=== PATIENT | female | born 1985 | race Caucasian/White ===

== ENCOUNTER 2018-10-20 08:34 | Observation (INO) | payer OTHER ==
[~2018-10-20] VITALS: Ht 172.7 cm; Wt 72.3 kg
[2018-10-20] VITALS (26 sets, daily range): BP systolic 116–146; BP diastolic 55–78; PULSE 78–116; RESP 12–32; Ht 172.7 cm; Wt 72.3 kg
[~2018-10-20 08:34] MED LIST: METOCLOPRAMIDE 10 MG INJ ONE
[2018-10-20] MEDS ORDERED: LIDOCAINE 2% (SDV) 5 ML INJ ONE ×2 (09:37→10:44)
[2018-10-20] MEDS ORDERED: MIDAZOLAM 1 MG/ML 2 ML INJ ONE ×2 (09:37→11:56)
[2018-10-20] MEDS ORDERED: PROPOFOL 20 ML ONE ×2 (09:37→15:28)
[2018-10-20] MEDS ORDERED: FENTAnyl 50 MCG/ML VIAL ONE ×2 (09:37→12:10)
[2018-10-20] MEDS ORDERED: CEFAZOLIN 1 GM INJ ONE (09:39)
--- NOTE | 2018-10-20 10:09 | PREAC ---
Date/Time of Note Date/Time of Note DATE: 10/20/18 TIME: 10:08 Anesthesia Eval and Record Evaluation Time Pre-Procedure Interview DATE: 10/20/18 TIME: 10:08 Age 33 Sex female NPO: 8 hrs Preoperative diagnosis L ankle non-union Planned procedure arthroscopic repair of L ankle non-union Past Medical History Past Medical History: None Surgery & Anesthesia Issues No known issue Meds Anticoagulation: No Beta Slava within 24 hr: No Reason Beta Slava not given: Pt. not on B-Slava No Active Prescriptions or Reported Meds Meds reviewed: Yes Allergies Coded Allergies: No Known Allergy (Unverified , 10/20/18) Allergies Reviewed: Yes Labs/Studies Labs Reviewed: Reviewed by anesthesiologist test: Negative Pre-procedure Exam Airway: Adequate mouth opening, Adequate thyromental dist Mallampati: Mallampati III Teeth: Normal Lung: Normal Heart: Normal ASA Physical Status ASA physical status: 2 Emergency: None Planned Anesthetic General/MAC: ETT Planned Pain Management Single shot nerve block, Parenteral pain med, Local by surgeon Pre-operative Attestations Prior to commencing anesthesia and surgery, the patient was re-evaluated, there was verification of: *The patient's identity *The results of appropriate recent lab work and preoperative vital signs *The above evaluation not changing prior to induction *Anesthetic plan, risk benefits, alternative and complications discussed with patient/family; questions answered; patient/family understands, accepts and wishes to proceed. ROSEMARY TENORIO MD Oct 20, 2018 10:09
[2018-10-20] MEDS ORDERED: DIPHENHYDRAMINE 50 MG INJ IV PRN (10:30)
[2018-10-20] MEDS ORDERED: FENTAnyl 50 MCG/ML VIAL IV PRN ×2 (10:30)
[2018-10-20] MEDS ORDERED: LEVALBUTEROL (NEB) 1.25 MG/0.5 ML AMP HHN PRN (10:30)
[2018-10-20] MEDS ORDERED: LABETALOL HCL 20MG INJ IV PRN (10:30)
[2018-10-20] MEDS ORDERED: ONDANSETRON 4 MG INJ IV PRN ×2 (10:30→16:00)
[2018-10-20] MEDS ORDERED: MEPERIDINE 25 MG INJ IV PRN (10:30)
[2018-10-20] MEDS ORDERED: hydrALAzine 20 MG INJ IV PRN (10:30)
[2018-10-20] MEDS ORDERED: LACTATED RINGER'S 1,000 ML IV SCH (10:30)
[2018-10-20] MEDS ORDERED: HYDROmorphONE 1 MG/5 ML IV SYRINGE IV PRN ×3 (10:30)
[2018-10-20] MEDS ORDERED: MIDAZOLAM 1 MG/ML 2 ML INJ IV PRN (10:30)
[2018-10-20] MEDS ORDERED: ROPIVACAINE 0.5 % 30 ML VIAL ONE ×2 (10:44→14:58)
[2018-10-20] MEDS ORDERED: SUCCINYLCHOLINE CHLORIDE 100 MG/5 ML SYG IV ONE (10:45)
[2018-10-20] MEDS ORDERED: ROCURONIUM 50 MG INJ ONE (10:45)
[2018-10-20] MEDS ORDERED: LIDOCAINE 1%/EPI (1:100,000) (MDV) 20 ML ONE (10:57)
[2018-10-20] MEDS ORDERED: ONDANSETRON 4 MG INJ ONE (11:22)
[2018-10-20] MEDS ORDERED: METOPROLOL 5 MG INJ ONE (12:08)
[2018-10-20] MEDS ORDERED: GLYCOPYRROLATE 0.4 MG INJ ONE (14:48)
[2018-10-20] MEDS ORDERED: NEOSTIGMINE 3 MG/3 ML SYRINGE ONE (14:48)
[2018-10-20] MEDS ORDERED: HYDROmorphONE 2 MG/ML SYG ONE (15:11)
[2018-10-20] MEDS: SOD CHLORIDE 0.9% 1,000 ML IV SCH ×2 (15:42→20:43)
--- NOTE | 2018-10-20 15:42 | OPPN ---
Date/Time of Note Date/Time of Note DATE: 10/20/18 TIME: 15:40 Operative Report Preoperative Diagnosis Nonunion left calcaneus anterior process fracture Postoperative Diagnosis same Operation/Procedure Performed Left ankle subtalar arthroscopy with extensive debridement. Open excision of left calcaneus nonunion fracture fragment Surgeon see signature line pharmacy affairs assistant Hang Dumont MD Anesthesia: general Estimated blood loss: minimal Transfusion Required none Specimen none Grafts/Implants none Complications none BETY WONG MD Oct 20, 2018 15:42
[2018-10-20] MEDS ORDERED: OXYCODONE/ACETAMINOPHEN (5/325) TAB PO PRN (16:00)
[2018-10-20] MEDS ORDERED: morphine 2 MG INJ IV PRN (16:00)
--- NOTE | 2018-10-20 16:05 | PAC ---
Date/Time of Note Date/Time of Note DATE: 10/20/18 TIME: 16:05 Post-Anesthesia Notes Post-Anesthesia Note Last documented vital signs Vital Signs Date Temp Pulse Resp B/P (MAP) Pulse Ox O2 O2 Flow FiO2 Time Delivery Rate 10/20/18 98.0 16:00 10/20/18 116 16 136/72 98 Mask 8.0 15:44 (93) Activity: WNL Respiratory function: WNL Cardiovascular function: WNL Mental status: Baseline Pain reasonably controlled: Yes Hydration appropriate: Yes Nausea/Vomiting absent: Yes ROSEMARY TENORIO MD Oct 20, 2018 16:05
[2018-10-20] MEDS ORDERED: CEPHALEXIN 500 MG CAP PO SCH (20:15)
--- NOTE | 2018-10-20 20:22 | CONS ---
DATE OF ADMISSION: 10/20/2018 DATE OF CONSULTATION: TYPE OF CONSULTATION: Medical. REASON FOR CONSULTATION: Chest pain and abnormal EKG. HISTORY OF PRESENT ILLNESS: This 33-year-old female is now postop a left foot surgery by Dr. Joaquin Wong. She underwent left ankle subtalar arthroscopy with extensive debridement, open excision of left calcaneus nonunion fracture fragment. This patient was in her usual state of health until 05/30 when she rolled her left ankle while walking downstairs. She was seen in an urgent care and franz bsequently seen by an orthopedist at [facility], Dr. Conley. The patient was in a cast fo r 5 weeks and then in a boot for 5 weeks. She did physical therapy. She then saw Dr. Martin and was referred to Dr. Wong. The patient after surgery today did have an electrocardiogram done. The electrocardiogram was read as abnormal. It showed ST and T-wave abnormality to consider inferior is chemia and ST-T wave abnormality to consider anterior lateral ischemia. The patient does have very v ague chest tightness. She says that she has had this kind of chest tightness in the past with anxiet y. She was physically active and denies ever having substernal chest pain or pressure which stopped her from exercising. She has no shortness of breath at this time. She is currently in the recovery room after having left foot surgery. She is awake and alert. Her father is with her. I did ask him about any family history of heart disease. He says that he was told that he has an abnormal EKG and a heart murmur but that he has not been treated for heart disease. PAST MEDICAL HISTORY: Unremarkable. She does not take any oral medication on a regular basis. ALLERGIES: SHE HAS AN ALLERGY TO ANECTINE. PAST SURGICAL HISTORY: She has never had surgery previously. FAMILY HISTORY: Positive for hypertension. SOCIAL HISTORY: She is single. She does not smoke, drinks alcohol occasionally. REVIEW OF SYSTEMS: She denies any headache, visual problems, abdominal pain. She did have some naus ea earlier which was relieved with medication. She otherwise seems comfortable. PHYSICAL EXAMINATION: GENERAL: At this time reveals a well-developed female in no apparent distress. VITAL SIGNS: Pulse of 92, respirations 16, blood pressure 127/56, O2 saturation 97% on room air. HEENT: Head is normocephalic. Eyes: Extraocular muscles are intact. Nose and mouth are normal. NECK: Supple. No neck vein distention. LUNGS: Clear to auscultation. HEART: Regular rhythm. No murmurs, gallops or rubs. ABDOMEN: Soft, nontender. EXTREMITIES: No peripheral edema on the right leg. Her left leg is in a large ankle, lower leg cast and is elevated. IMPRESSION: Chest pressure with abnormal EKG. This young woman is now being seen because of an abno rmal electrocardiogram. She does have ST-T wave changes which are suggestive of inferior and anterio r lateral ischemia. She has some vague chest pressure that she says she gets with anxiety, but has n ever had exertional chest pain or pressure. The patient is otherwise comfortable and stable at this time. She has no other significant past medical history. PLAN: 1. Admit to telemetry. 2. Cardiology evaluation. Dr. Pennington has been called and will see the patient in the morning. 3. We will check some baseline laboratory tests. 4. EKG, echocardiogram, labs in the morning. Dictated By: SHIRA RAMOS MD ND/NTS Conf#: [id number] DID#: [id number] CC: JOAQUIN WONG MD; CR PENNINGTON MD;*[facility]*
[2018-10-20] MEDS: CEFAZOLIN 1 GM/50 ML (PMX) 50 ML IVPB SCH (23:48)
[2018-10-21] VITALS (7 sets, daily range): BP systolic 120–129; BP diastolic 57–72; PULSE 72–86; RESP 20
--- NOTE | 2018-10-21 00:02 | OPR ---
DATE OF OPERATION: PREOPERATIVE DIAGNOSES: 1. Sinus tarsi fibrosis, left subtalar joint. 2. Nonunion and fracture of the anterior process of the calcaneus. POSTOPERATIVE DIAGNOSES: 1. Sinus tarsi fibrosis. 2. Synovitis subtalar joint. 3. Nonunion anterior process of calcaneus fracture very large. OPERATION: 1. Arthroscopy, left subtalar joint and soft tissue impingement. 2. Extensive debridement, subtalar joint. 3. Excision sinus tarsi scarring. 4. Open excision nonunion anterior process of the calcaneus. 5. Use of fluoroscopy to verify position of the anterior process fracture and verify excision. 6. Short-leg cast. SURGEON: Bety Ridley MD CELERY PACKER: Hang Dumont MD ANESTHESIA: General with popliteal block. TOURNIQUET TIME: 123 minutes. DESCRIPTION OF PROCEDURE: The patient taken to the operating room, placed in supine position. Satis factory popliteal block was given. Satisfactory general anesthesia administered. Left thigh secured in the thigh olguin. Arms were carefully padded. The left leg was prepped and draped in usual fitzpatrick er, 2 grams Ancef intravenously. Tourniquet inflated to 250 mmHg. Soft tissue distraction applied. Standard anterior lateral central and posterolateral portals were made in the subtalar joint. We ma de the anterolateral portal, closer to the sinus tarsi. There was scarring and fibrosis in the sinus tarsi and interosseous ligament was intact. Talocalcaneal articulation was smooth and glistening an teriorly, centrally and posteriorly. There was synovitis in the lateral and posterior gutters. Shav er was inserted. Posterior gutter and lateral gutter were debrided. The sinus tarsi was debrided. We followed it all the way up to the area of the anterior process of the calcaneus. A separate bret l was then made over the calcaneocuboid joint. Using a [place] elevator and a shaver and a bur, we rem mercy as much of the anterior process nonunion fracture of the calcaneus as we could. However, it was very large. We use fluoroscopy to verify the exact position make sure we were in the correct spot. However, because it was so large, we felt it was prudent to open this instead. The foot was then reprepped and draped. All new gowns and gloves were used. New instruments were us ed. Incision was extended in line with the superficial peroneal nerve were previous portals have bee n made. Dissection carried down through subcutaneous tissue. The anterior process fracture was iden tified. An osteotome was needed to excise the fragment and removed the hole anterior process fractur e. It came out in several pieces. These pieces were then videotape, then did a video of the actual incision. Final fluoroscopic views showed complete excision anterior process nonunion fracture of th e calcaneus. The calcaneal cuboid was intact as was the surrounding talonavicular joint. Wounds irr igated repeatedly with antibiotic solution. The deep tissues were closed with 2-0 undyed Vicryl, sub cutaneous tissue, 3-0 undyed Vicryl and skin with 4-0 black nylon. Short-leg cast was applied in julieth tral position. Interprocedure sponge and needle count was correct. The patient tolerated procedure well and the cast was put in the recovery room. CLERK GENERAL OFFICE ORTHOPEDIC SURGEON: During the procedure, an bakery assistant orthopedic surgeon was used to rommel pulate the foot and ankle and subtalar joints to assist in excision of the nonunion fragment Without a skilled orthopedic surgeon assisting, this could not have been done and should be compensated appro priately. Dictated By: BETY DELATORRE/JASON Conf#: [id number] DID#: [id number]
[2018-10-21] MEDS: CEFAZOLIN 1 GM/50 ML (PMX) 50 ML IVPB SCH (05:32)
[2018-10-21] MEDS: OXYCODONE/ACETAMINOPHEN (5/325) TAB PO PRN ×2 (05:36→09:49)
--- NOTE | 2018-10-21 06:43 | PN ---
Date/Time of Note Date/Time of Note DATE: 10/21/18 TIME: 06:38 Assessment/Plan VTE Prophylaxis Risk score (from [facility])>0 risk: 8 SCD applied (from [facility]): Yes Pharmacological prophylaxis: other Lines/Catheters IV Catheter Type (from [facility]): Peripheral IV Assessment/Plan Result Diagram: 10/21/1831810/21/189 Results 24hrs Laboratory Tests Test 10/20/18 19:04 10/21/18 03:19 White Blood Count 12.6 H 7.1 # Red Blood Count 4.37 3.96 L Hemoglobin 12.7 11.6 L Hematocrit 37.5 34.5 L Mean Corpuscular Volume 85.8 87.1 Mean Corpuscular Hemoglobin 29.1 29.3 Mean Corpuscular Hemoglobin Concent 33.9 33.6 Red Cell Distribution Width 12.2 12.3 Platelet Count 289 245 Mean Platelet Volume 10.0 10.1 Immature Granulocytes % 0.400 0.400 Neutrophils % 89.0 H 70.6 Lymphocytes % 6.6 L 21.9 Monocytes % 3.8 6.6 Eosinophils % 0.0 0.1 Basophils % 0.2 0.4 Nucleated Red Blood Cells % 0.0 0.0 Immature Granulocytes # 0.050 H 0.030 Neutrophils # 11.2 H 5.0 Lymphocytes # 0.8 1.6 Monocytes # 0.5 0.5 Eosinophils # 0.0 0.0 Basophils # 0.0 0.0 Nucleated Red Blood Cells # 0.0 0.0 CBC Results Faxed/Phoned Sodium Level 142 143 Potassium Level 4.6 4.0 Chloride Level 109 110 Carbon Dioxide Level 24 28 Anion Gap 9 5 Blood Urea Nitrogen 8 6 L Creatinine 0.64 0.63 Est Glomerular Filtrat Rate mL/min > 60 > 60 Glucose Level 109 96 Calcium Level 9.2 8.7 Total Bilirubin 0.6 0.7 Direct Bilirubin 0.00 0.00 Indirect Bilirubin 0.6 0.7 Aspartate Amino Transf (AST/SGOT) 20 22 Alanine Aminotransferase (ALT/SGPT) 21 20 Alkaline Phosphatase 68 56 Troponin I < 0.012 < 0.012 Total Protein 6.6 6.0 L Albumin 3.8 3.4 Globulin 2.80 2.60 Albumin/Globulin Ratio 1.35 1.30 Subjective 24 Hr Interval Summary Free Text/Dictation 33 y/o F POD#1 from right ankle arthroscopy and open excision of calcaneus non- union fracture fragment S: Pt was admitted for abnormal ekg post op and was admitted to telemetry for continuous monitoring. She states she feels well this morning. No events overnight. She denies palpitations, chest pain, shortness of breath, light headedness or dizziness. She states the block to her LLE is wearing off and she took a pain pill this morning. No other complaints. O: Gen: afebrile, aaox3 MSK LLE: cast in place, clean and dry. able to wiggle toes and sensation intact to toes. Plan: 1. Will await cardiology input 2. NWB LLE 3. Pain control 4. DVT PPX: scd's, will hold off on pharmacologic ppx until cardiology input is received. 5. OK for dischage home once cleared by cardiology Exam/Review of Systems Exam Vitals Vital Signs Date Temp Pulse Resp B/P (MAP) Pulse Ox O2 O2 Flow FiO2 Time Delivery Rate 10/21/18 98.5 86 20 120/57 95 04:05 (78) 10/20/18 Room Air 19:29 10/20/18 2.0 16:19 Intake and Output 10/20/18 10/20/18 10/21/18 1515:00 23:00 07:00 IntakeIntake Total 1000 ml OutputOutput Total 10 ml BalanceBalance 1000 ml -10 ml Results Results 24hrs Laboratory Tests Test 10/20/18 19:04 10/21/18 03:19 White Blood Count 12.6 H 7.1 # Red Blood Count 4.37 3.96 L Hemoglobin 12.7 11.6 L Hematocrit 37.5 34.5 L Mean Corpuscular Volume 85.8 87.1 Mean Corpuscular Hemoglobin 29.1 29.3 Mean Corpuscular Hemoglobin Concent 33.9 33.6 Red Cell Distribution Width 12.2 12.3 Platelet Count 289 245 Mean Platelet Volume 10.0 10.1 Immature Granulocytes % 0.400 0.400 Neutrophils % 89.0 H 70.6 Lymphocytes % 6.6 L 21.9 Monocytes % 3.8 6.6 Eosinophils % 0.0 0.1 Basophils % 0.2 0.4 Nucleated Red Blood Cells % 0.0 0.0 Immature Granulocytes # 0.050 H 0.030 Neutrophils # 11.2 H 5.0 Lymphocytes # 0.8 1.6 Monocytes # 0.5 0.5 Eosinophils # 0.0 0.0 Basophils # 0.0 0.0 Nucleated Red Blood Cells # 0.0 0.0 CBC Results Faxed/Phoned Sodium Level 142 143 Potassium Level 4.6 4.0 Chloride Level 109 110 Carbon Dioxide Level 24 28 Anion Gap 9 5 Blood Urea Nitrogen 8 6 L Creatinine 0.64 0.63 Est Glomerular Filtrat Rate mL/min > 60 > 60 Glucose Level 109 96 Calcium Level 9.2 8.7 Total Bilirubin 0.6 0.7 Direct Bilirubin 0.00 0.00 Indirect Bilirubin 0.6 0.7 Aspartate Amino Transf (AST/SGOT) 20 22 Alanine Aminotransferase (ALT/SGPT) 21 20 Alkaline Phosphatase 68 56 Troponin I < 0.012 < 0.012 Total Protein 6.6 6.0 L Albumin 3.8 3.4 Globulin 2.80 2.60 Albumin/Globulin Ratio 1.35 1.30 Medications Medication Current Medications Ondansetron HCl (Zofran Inj) 4 mg Q4H PRN IV NAUSEA Last administered on 10/20/18at 18:09; Admin Dose 4 MG; Start 10/20/18 at 16:00 Oxycodone/ Acetaminophen (Percocet (5/ 325)) 1 tab Q4H PRN PO PAIN LEVEL 1-3 Last administered on 10/21/18at 05:36; Admin Dose 1 TAB; Start 10/20/18 at 16:00 Oxycodone/ Acetaminophen (Percocet (5/ 325)) 2 tab Q4H PRN PO PAIN LEVEL 4-6; Start 10/20/18 at 16:00 Sodium Chloride 1,000 ml @ 100 mls/hr Q10H IV Last administered on 10/20/18at 20:43; Admin Dose 100 MLS/HR; Start 10/20/18 at 15:42 Morphine Sulfate (morphine) 2 mg Q1H PRN IV PAIN; Start 10/20/18 at 16:00 Cefazolin Sodium 50 ml @ 100 mls/hr Q6 IVPB Last administered on 10/21/18 05:32; Admin Dose 100 MLS/HR; Start 10/21/18 at 00:00 BETY WONG MD Oct 21, 2018 06:43
--- NOTE | 2018-10-21 08:34 | CONS ---
Assessment/Plan Assessment/Plan Hospital Course (Demo Recall) Abnormal EKG- neg serial trop and echo normal. pt relatively asymptomatic except slight pleuritic type cp. unfortunately no preop ekg available, but this is likely her baseline ekg. ok to d/c home and have her f/u with her local primary care physician. L foot surgery- per ortho Consultation Date/Type/Reason Admit Date/Time Oct 20, 2018 at 17:05 Date of Consultation: Oct 21, 2018 Type of Consult Cardiology Reason for Consultation Abnl EKG Requesting Provider: SARA WONG MD Date/Time of Note DATE: 10/21/18 TIME: 08:28 Hx of Present Illness 33 y.o. with h/o L foot fracture. Pt s/p foot surgery yesterday, noted by jose yepez to have st changes on the tele monitor. pt did well with procedure, no HD instability. post op ekg showed nsr with st depression/twi inf/lateral leads. pt relatively asymptomatic, reported minor chest discomfort with deep inspiration. otherwise no cp/pressure. no positional chest pain. no n/v, sweating. no gi discomfort, palp, dizziness, syncope. states prior to injury was active no cp/sob. walked to bathroom this am, no cp/sob/dizziness tele reviewed nsr no events ekg with nsr with inf/lateral twi and mild st depression. repeat with twi less st depression Constitutional: no complaints Eyes: no complaints ENT: no complaints Respiratory: no complaints Cardiovascular: chest pain Gastrointestinal: no complaints Genitourinary: no complaints Musculoskeletal: bone/joint pain Skin: no complaints Neurologic: no complaints Endocrine: no complaints Psychological: no complaints Immunologic: no complaints Past Medical History Home Meds No Active Prescriptions or Reported Meds Medications Current Medications Ondansetron HCl (Zofran Inj) 4 mg Q4H PRN IV NAUSEA Last administered on 10/20/18at 18:09; Admin Dose 4 MG; Start 10/20/18 at 16:00 Oxycodone/ Acetaminophen (Percocet (5/ 325)) 1 tab Q4H PRN PO PAIN LEVEL 1-3 Last administered on 10/21/18at 05:36; Admin Dose 1 TAB; Start 10/20/18 at 16:00 Oxycodone/ Acetaminophen (Percocet (5/ 325)) 2 tab Q4H PRN PO PAIN LEVEL 4-6; Start 10/20/18 at 16:00 Sodium Chloride 1,000 ml @ 100 mls/hr Q10H IV Last administered on 10/20/18at 20:43; Admin Dose 100 MLS/HR; Start 10/20/18 at 15:42 Morphine Sulfate (morphine) 2 mg Q1H PRN IV PAIN; Start 10/20/18 at 16:00 Cefazolin Sodium 50 ml @ 100 mls/hr Q6 IVPB Last administered on 10/21/18at 05:32; Admin Dose 100 MLS/HR; Start 10/21/18 at 00:00 Allergies: Coded Allergies: succinylcholine (Verified Allergy, Unknown, 10/20/18) Past Surgical History L foot surgery Family History Significant Family History: other (no cad) Social History Alcohol Use: none Smoking Status: Never smoker Drug Use: none Exam/Review of Systems Exam Vitals Vital Signs Date Temp Pulse Resp B/P (MAP) Pulse Ox O2 O2 Flow FiO2 Time Delivery Rate 10/21/18 99.1 81 20 121/59 96 07:32 (79) 10/20/18 Room Air 19:29 10/20/18 2.0 16:19 Intake and Output 10/20/18 10/20/18 10/21/18 1515:00 23:00 07:00 IntakeIntake Total 1000 ml OutputOutput Total 10 ml BalanceBalance 1000 ml -10 ml Constitutional: alert, oriented Psych: no complaints, nl mood/affect Head: normocephalic, atraumatic Eyes: nl conjunctiva, EOMI, nl lids ENMT: nl external ears & nose, nl lips & teeth, nl nasal mucosa & septum Neck: supple, non-tender; No jvd, No bruits Respiratory: clear to auscultation, normal air movement Cardiovascular: regular rate and rhythm, nl pulses; No bruits, No diastolic murmur, No edema, No systolic murmur, No S3, No S4 Gastrointestinal: soft, nl liver, spleen, non-tender Musculoskeletal: other (L foot/leg in cast. no edema ) Extremities: normal pulses Neurological: [employer] SUPERVISOR II-XII intact, nl mental status, nl speech, nl strength Skin: nl turgor Results Result Diagram: 10/21/18 0319 10/21/18 0319 Results 24hrs Laboratory Tests Test 10/20/18 19:04 10/21/18 03:19 White Blood Count 12.6 H 7.1 # Red Blood Count 4.37 3.96 L Hemoglobin 12.7 11.6 L Hematocrit 37.5 34.5 L Mean Corpuscular Volume 85.8 87.1 Mean Corpuscular Hemoglobin 29.1 29.3 Mean Corpuscular Hemoglobin Concent 33.9 33.6 Red Cell Distribution Width 12.2 12.3 Platelet Count 289 245 Mean Platelet Volume 10.0 10.1 Immature Granulocytes % 0.400 0.400 Neutrophils % 89.0 H 70.6 Lymphocytes % 6.6 L 21.9 Monocytes % 3.8 6.6 Eosinophils % 0.0 0.1 Basophils % 0.2 0.4 Nucleated Red Blood Cells % 0.0 0.0 Immature Granulocytes # 0.050 H 0.030 Neutrophils # 11.2 H 5.0 Lymphocytes # 0.8 1.6 Monocytes # 0.5 0.5 Eosinophils # 0.0 0.0 Basophils # 0.0 0.0 Nucleated Red Blood Cells # 0.0 0.0 CBC Results Faxed/Phoned Sodium Level 142 143 Potassium Level 4.6 4.0 Chloride Level 109 110 Carbon Dioxide Level 24 28 Anion Gap 9 5 Blood Urea Nitrogen 8 6 L Creatinine 0.64 0.63 Est Glomerular Filtrat Rate mL/min > 60 > 60 Glucose Level 109 96 Calcium Level 9.2 8.7 Total Bilirubin 0.6 0.7 Direct Bilirubin 0.00 0.00 Indirect Bilirubin 0.6 0.7 Aspartate Amino Transf (AST/SGOT) 20 22 Alanine Aminotransferase (ALT/SGPT) 21 20 Alkaline Phosphatase 68 56 Troponin I < 0.012 < 0.012 Total Protein 6.6 6.0 L Albumin 3.8 3.4 Globulin 2.80 2.60 Albumin/Globulin Ratio 1.35 1.30 Imaging Imaging cxr report reviewed echo prelim - normal lv size/function. normal chamber sizes/fxn. no valve abnl. Medications Medication Current Medications Ondansetron HCl (Zofran Inj) 4 mg Q4H PRN IV NAUSEA Last administered on 10/20/18at 18:09; Admin Dose 4 MG; Start 10/20/18 at 16:00 Oxycodone/ Acetaminophen (Percocet (5/ 325)) 1 tab Q4H PRN PO PAIN LEVEL 1-3 Last administered on 10/21/18at 05:36; Admin Dose 1 TAB; Start 10/20/18 at 16:00 Oxycodone/ Acetaminophen (Percocet (5/ 325)) 2 tab Q4H PRN PO PAIN LEVEL 4-6; Start 10/20/18 at 16:00 Sodium Chloride 1,000 ml @ 100 mls/hr Q10H IV Last administered on 10/20/18at 20:43; Admin Dose 100 MLS/HR; Start 10/20/18 at 15:42 Morphine Sulfate (morphine) 2 mg Q1H PRN IV PAIN; Start 10/20/18 at 16:00 Cefazolin Sodium 50 ml @ 100 mls/hr Q6 IVPB Last administered on 10/21/18at 05:32; Admin Dose 100 MLS/HR; Start 10/21/18 at 00:00 CR [place] Oct 21, 2018 08:34
--- NOTE | 2018-10-21 11:09 | CONS ---
Assessment/Plan Assessment/Plan Hospital Course (Demo Recall) 1. This patient was admitted after having a left foot surgery yesterday for a nonhealing fracture of the calcaneus. Postoperatively she was found to have an abnormal electrocardiogram. She is now feeling well. She had a cardiac work-up including echocardiogram, cardiology consultation, and negative troponin levels. Cardiology has cleared her to go home. The patient has been seen by [facility] therapy and they have cleared her to go home. I am in agreement and the patient can be discharged to home today under the care of her father. She will continue antibiotics and pain medication as prescribed by her orthopedically impaired teacher Dr. Joaquin Wong . Consultation Date/Type/Reason Admit Date/Time Oct 20, 2018 at 17:05 Initial Consult Date 10/21/18 Requesting Provider: SARA WONG MD Date/Time of Note DATE: 10/21/18 TIME: 11:03 24 HR Interval Summary Free Text/Dictation Nikki is being seen this morning in medical follow-up. She is 1 day postop a left foot surgery. She is awake and alert. She has no complaints. She denies chest pain or shortness of breath. Constitutional: no complaints, improved Exam/Review of Systems Exam Vitals Vital Signs Date Temp Pulse Resp B/P (MAP) Pulse Ox O2 O2 Flow FiO2 Time Delivery Rate 10/21/18 74 08:00 10/21/18 99.1 20 121/59 96 07:32 (79) 10/20/18 Room Air 19:29 10/20/18 2.0 16:19 Intake and Output 10/20/18 10/20/18 10/21/18 1515:00 23:00 07:00 IntakeIntake Total 1000 ml OutputOutput Total 10 ml BalanceBalance 1000 ml -10 ml Constitutional: alert, oriented, well developed Respiratory: clear to auscultation, normal air movement Cardiovascular: regular rate and rhythm Gastrointestinal: soft Musculoskeletal: nl extremities to inspection Results Result Diagram: 10/21/1831810/21/18318 Results 24hrs Laboratory Tests Test 10/20/18 19:04 10/21/18 03:19 10/21/18 10:10 White Blood Count 12.6 H 7.1 # Red Blood Count 4.37 3.96 L Hemoglobin 12.7 11.6 L Hematocrit 37.5 34.5 L Mean Corpuscular Volume 85.8 87.1 Mean Corpuscular Hemoglobin 29.1 29.3 Mean Corpuscular Hemoglobin Concent 33.9 33.6 Red Cell Distribution Width 12.2 12.3 Platelet Count 289 245 Mean Platelet Volume 10.0 10.1 Immature Granulocytes % 0.400 0.400 Neutrophils % 89.0 H 70.6 Lymphocytes % 6.6 L 21.9 Monocytes % 3.8 6.6 Eosinophils % 0.0 0.1 Basophils % 0.2 0.4 Nucleated Red Blood Cells % 0.0 0.0 Immature Granulocytes # 0.050 H 0.030 Neutrophils # 11.2 H 5.0 Lymphocytes # 0.8 1.6 Monocytes # 0.5 0.5 Eosinophils # 0.0 0.0 Basophils # 0.0 0.0 Nucleated Red Blood Cells # 0.0 0.0 CBC Results Faxed/Phoned Sodium Level 142 143 Potassium Level 4.6 4.0 Chloride Level 109 110 Carbon Dioxide Level 24 28 Anion Gap 9 5 Blood Urea Nitrogen 8 6 L Creatinine 0.64 0.63 Est Glomerular Filtrat Rate mL/min > 60 > 60 Glucose Level 109 96 Calcium Level 9.2 8.7 Total Bilirubin 0.6 0.7 Direct Bilirubin 0.00 0.00 Indirect Bilirubin 0.6 0.7 Aspartate Amino Transf (AST/SGOT) 20 22 Alanine Aminotransferase (ALT/SGPT) 21 20 Alkaline Phosphatase 68 56 Troponin I < 0.012 < 0.012 < 0.012 Total Protein 6.6 6.0 L Albumin 3.8 3.4 Globulin 2.80 2.60 Albumin/Globulin Ratio 1.35 1.30 Medications Medication Current Medications Ondansetron HCl (Zofran Inj) 4 mg Q4H PRN IV NAUSEA Last administered on 10/20/18at 18:09; Admin Dose 4 MG; Start 10/20/18 at 16:00 Oxycodone/ Acetaminophen (Percocet (5/ 325)) 1 tab Q4H PRN PO PAIN LEVEL 1-3 Last administered on 10/21/18at 09:49; Admin Dose 1 TAB; Start 10/20/18 at 16:00 Oxycodone/ Acetaminophen (Percocet (5/ 325)) 2 tab Q4H PRN PO PAIN LEVEL 4-6; Start 10/20/18 at 16:00 Sodium Chloride 1,000 ml @ 100 mls/hr Q10H IV Last administered on 10/20/18at 20:43; Admin Dose 100 MLS/HR; Start 10/20/18 at 15:42 Morphine Sulfate (morphine) 2 mg Q1H PRN IV PAIN; Start 10/20/18 at 16:00 Cefazolin Sodium 50 ml @ 100 mls/hr Q6 IVPB Last administered on 10/21/18at 05:32; Admin Dose 100 MLS/HR; Start 10/21/18 at 00:00 SHIRA RAMOS MD Oct 21, 2018 11:09
--- NOTE | 2018-10-21 11:14 | PDOCDIS ---
Discharge Instructions CONDITION [id number] Patient Condition: Bbtou8m Good HOME CARE INSTRUCTIONS: [id number] Diet Instructions: [id number] Regular ACTIVITY: [id number] Activity Restrictions: [id number] Slowly Increase Activity Rest between Activity Avoid heavy lifting [id number] Bathing Restrictions: [id number] Sponge Bath FOLLOW UP/APPOINTMENTS Follow-up Plan Dr Joaquin Ridley , primary care physician SHIRA RAMOS MD Oct 21, 2018 11:14
[2018-10-21] MEDS: SOD CHLORIDE 0.9% 1,000 ML IV SCH (11:42)
--- NOTE | 2018-10-21 17:22 | RADRPT ---
Vent Rate: 74 bpm RR Interval: 816 msec [place] Interval: 154 msec QRS Duration: 87 msec QT Interval: 391 msec QTC Interval: 433 msec P-R-T [place]: 63 - 71 - 257 degrees Sinus rhythm. Low voltage, precordial leads...precordial leads <1.0mV Abnormal T, consider ischemia, ant/lat/inf Electronically Signed By: Donald Miramontes
--- NOTE | 2018-10-21 17:25 | RADRPT ---
Vent Rate: 111 bpm RR Interval: 0 msec [place] Interval: 174 msec QRS Duration: 84 msec QT Interval: 334 msec QTC Interval: 454 msec P-R-T [place]: 60 - 80 - -[address] & T wave abnormality, consider inferior ischemia ST & T wave abnormality, consider anterolateral ischemia Abnormal ECG Electronically Signed By: Donald Miramontes
--- NOTE | 2018-10-22 00:12 | DS ---
DATE OF ADMISSION: 10/20/2018 DATE OF DISCHARGE: 10/21/2018 DISCHARGE DIAGNOSES: 1. Sinus tarsi syndrome, left subtalar joint. 2. Nonunion anterior process fracture calcaneus. SURGERY: On 10/20/2018, arthroscopy left subtalar joint with extensive debridement excision, sinus t arsi scarring and open excision of nonunion anterior process fracture calcaneus. HISTORY OF PRESENT ILLNESS: The patient is a 33-year-old female suffered a fracture of her anterior process of the calcaneus, has not gotten better with conservative treatment. She now has a nonunion and pain in the subtalar joint and over the fracture fragment, been now for surgery. PAST MEDICAL HISTORY: See history and physical record. PHYSICAL EXAMINATION: Normal except for the orthopedic exam, which revealed pain along the sinus tar si and anterior process calcaneus. LABORATORY DATA: Normal. DIAGNOSTIC DATA: Chest x-ray was clear. EKG was stable. HOSPITAL COURSE: The patient was taken to the operating room and underwent above-mentioned procedure . In the recovery room, the patient had some abnormal ST-T wave changes in her EKG. Cardiology was called. Cardiology felt the patient should stay overnight in the hospital. Patient was seen by Dr. Galvez and also by Cardiology, the following day. She was felt to be stable. The changes that w ere seen were not entirely clear, and she was discharged with the recommendation to be followed by he r primary care doctor and have a thorough cardiac workup in the future to rule out any subtle problem s. She was discharged on pain medication and antibiotics. Dictated By: BETY DELATORRE/JASON Conf#: [id number] DID#: [id number]
--- NOTE | 2018-10-22 10:58 | RADRPT ---
Echocardiogram Report Patient Name: Shira GAMINGent ID: [id number] : 1985 (33y 6m)Study Date: 10/21/2018 7:11:12 AM Gender: FAccession #: [id number] Tech: Joesph Huang WAQAR Location: [id number] Ref.Physician: SHIRA RAMOS Height(Cm): BSA: Weight(Kg): Quality: AdequateAccount #: Procedures: Echocardiographic Report: Transthoracic echocardiogram with complete 2D, M-Mode, and doppler examination. Indications: Abnormal EKG. Measurements: 2D/M Mode Doppler Measurement Value Normal Range Measurement Value Normal Range LVIDd 2D 3.7 [ 3.8 - 5.2 ] cm AV Peak Imchael 1.2 [ 100.0 - 170.0 ] cm/sec LVIDs 2D 2.1 [ 2.2 - 3.5 ] cm AV Peak PG 6.0 [ 2.0 - 9.0 ] mmHg LVPWd 2D 1.1 [ 0.6 - 0.9 ] cm LVOT Peak Michael 1.0 [ 70.0 - 110.0 ] cm/sec IVSd 2D 0.9 [ 0.6 - 0.9 ] cm LVOT Peak PG 4.0 [ 2.0 - 6.0 ] mmHg AoR Diam 2D 2.6 [ 2.3 - 3.1 ] cm MV E Peak Michael 1.0 [ 60.0 - 130.0 ] cm/sec EDV 2D 56.3 [ 46.0 - 106.0 ] ml MV A Peak Michael 0.8 [ 100.0 - 120.0 ] cm/sec ESV 2D 14.1 [ 14.0 - 42.0 ] ml MV E/A 1.2 [ 0.8 - 1.5 ] ratio EF 2D 75.0 [ 54.0 - 74.0 ] percent MV Decel Time 187 [ 104 - 258 ] msec LA Dimen 2D 2.6 [ 2.7 - 3.8 ] cm Lat E` Michael 0.1 [ 10.0 - 15.0 ] cm/sec Lateral E/E` 8.8 [ 1.0 - 2.0 ] ratio MV E/A 1.2 [ 0.8 - 1.5 ] ratio TR Peak Michael 1.8 [ 100.0 - 280.0 ] cm/sec TR Peak PG 13.0 mmHg RVSP 26.0 [ 10.0 - 36.0 ] mmHg RA Pressure 3.0 mmHg Findings: Left Ventricle: Normal left ventricular systolic function. Normal left ventricular cavity size. Normal left ventricular wall thickness. Ejection fraction is visually estimated at 60 %. Tissue Doppler/Mitral Doppler indices are within normal limits. Right Ventricle: Normal right ventricular size. Normal right ventricular systolic function. Left Atrium: The left atrium is normal in size. Right Atrium: The right atrium is normal in size. Mitral Valve: Normal appearance and function of the mitral valve with trace physiologic regurgitation. Aortic Valve: Normal appearance of the aortic valve. No significant aortic stenosis or insufficiency. Tricuspid Valve: Normal appearance of the tricuspid valve. Normal right ventricular systolic pressure. Estimated peak PA systolic pressure 26 mmHg. There is trace tricuspid regurgitation. Pulmonic Valve: Normal pulmonic valve appearance. Pericardium: Normal pericardium with no significant pericardial effusion. There is an anterior echo free space consistent with epicardial fat pad. Aorta: Normal aortic root. IVC: Normal size and normal respiratory collapse consistent with normal right atrial pressure. Conclusions: Normal left ventricular systolic function. Normal left ventricular cavity size. Normal left ventricular wall thickness. Ejection fraction is visually estimated at 60 %. Tissue Doppler/Mitral Doppler indices are within normal limits. Normal right ventricular size. Normal right ventricular systolic function. The left atrium is normal in size. Normal appearance of the aortic valve. No significant aortic stenosis or insufficiency. Normal appearance of the tricuspid valve. Normal right ventricular systolic pressure. Estimated peak PA systolic pressure 26 mmHg. There is trace tricuspid regurgitation. Normal pericardium with no significant pericardial effusion. There is an anterior echo free space consistent with epicardial fat pad. Normal aortic root. Normal size and normal respiratory collapse consistent with normal right atrial pressure. No Vegetation, masses, or thrombi seen. Electronically Signed By: Martín Pennington 2018-10-22 10:57:05 PDT
== END 2018-10-21 13:00 | disposition home or self-care (01) ==
LOC: SDS 08:34 → REC 17:05 → TEL 19:54
PROVIDERS: ADMIT Orthopaedic Surgery; ATTEND Orthopaedic Surgery
DX: M25.572 Pain in left ankle and joints of left foot (principal); M65.9 Synovitis and tenosynovitis, unspecified; S92.002A Unspecified fracture of left calcaneus, initial encounter for closed fracture; X58.XXXA Exposure to other specified factors, initial encounter
CPT/HCPCS: 28120; 29906; 71045; 73630; 80053; 84484; 85025; 93005; 93306; 97161; 99217; G0378; J0690; J1170; J2250; J2405; J2710; J2765; J2795; J3010; J7030